=== PATIENT | male | born 1980 | race American Indian/Alaskan Native ===

== ENCOUNTER 2016-10-02 20:15 | Emergency (ER) | payer MEDICAID, OTHER ==
[2016-10-02 21:18] VITALS: BP 131/72
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
== END 2016-10-02 23:07 | disposition home or self-care (01) ==
LOC: JP.ED 20:15
DX: H11.31 Conjunctival hemorrhage, right eye (principal); S00.83XA Contusion of other part of head, initial encounter; F17.210 Nicotine dependence, cigarettes, uncomplicated; Z98.890 Other specified postprocedural states; Z88.8 Allergy status to other drugs, medicaments and biological substances; Z91.013 Allergy to seafood; Y04.0XXA Assault by unarmed brawl or fight, initial encounter
CPT/HCPCS: 70450; 70486; 99282; 99284-25

== ENCOUNTER 2018-03-24 08:38 | Emergency (ER) | payer MEDICAID ==
[2018-03-24 08:54] VITALS: BP 111/74
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
== END 2018-03-24 09:52 | disposition home or self-care (01) ==
LOC: JP.ED 08:38
DX: F19.10 Other psychoactive substance abuse, uncomplicated (principal); E11.9 Type 2 diabetes mellitus without complications; F17.210 Nicotine dependence, cigarettes, uncomplicated; Z88.6 Allergy status to analgesic agent; Z91.013 Allergy to seafood
CPT/HCPCS: 80305-QW; 99285

== ENCOUNTER 2020-04-05 14:09 | Emergency (ER) | payer MEDICAID ==
[2020-04-05 14:34] VITALS: BP 107/64; PULSE 80
[2020-04-05] MEDS ORDERED: Cyclobenzaprine 10 MG Tab PO ONE (15:09)
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
--- NOTE | 2020-04-05 17:12 | CRLCR ---
INDICATION: Jaw face pain, stepped on nail TECHNIQUE: Facial bone radiograph 4 views COMPARISON: None FINDINGS: Bone: No acute fractures or aggressive bone lesions are identified. Joint: The temporomandibular joints are unremarkable in appearance. No TMJ subluxation or dislocation seen. Sinus: The visualized paranasal sinuses are unremarkable in appearance. Soft tissue: Unremarkable. No radiopaque foreign bodies are seen. IMPRESSION: 1. Both temporomandibular joints are normal in articulation. Dictated by: Truong Beltran MD @ 04/05/2020 17:10:58 (Electronically Signed)
== END 2020-04-05 17:42 | disposition home or self-care (01) ==
LOC: JP.ED 14:09
DX: A35 Other tetanus (principal); H93.19 Tinnitus, unspecified ear; Z88.6 Allergy status to analgesic agent; Z91.013 Allergy to seafood; F17.210 Nicotine dependence, cigarettes, uncomplicated
CPT/HCPCS: 36415; 70100; 80053; 83605; 85025; 86140; 99283; A9270

== ENCOUNTER 2020-04-08 10:16 | Emergency (ER) | payer MEDICAID ==
[2020-04-08 10:25] VITALS: BP 127/77; PULSE 84
[2020-04-08] MEDS ORDERED: fentaNYL 100 MCG/2 ML SDV IVPUSH ONE (10:40)
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
[2020-04-08] MEDS ORDERED: Iopamidol 612 MG/ML 500 ML Multipack Bottle IV ONE (12:20)
[2020-04-08] MEDS ORDERED: Sodium Chloride 0.9% 10 ML Syringe FLUSH ONE (12:20)
[2020-04-08] MEDS ORDERED: Sodium Chloride 0.9% 100 ML IV SCH (12:30)
--- NOTE | 2020-04-08 13:41 | CT ---
Soft Tissue Neck w Cont, Max Facial Sinus wo Cont CLINICAL HISTORY: Right neck and jaw pain COMPARISON: None TECHNIQUE: Multiple axial images were obtained of the neck with the IV infusion of iodinated contrast. Auto dosage reduction and iterative reconstruction techniques employed. FINDINGS: There is moderate soft tissue swelling involving the right side of the nasopharynx extending down into the right para pharyngeal region causing a shift of the pharynx to the left. There is a ringlike enhancing lesion just deep to the right mandibular ramus with some central low-attenuation. This measures 4.4 x 3.7 x 3.6 cm. There is moderate soft tissue swelling extending downward along the right and into the pterygoid fossa down to the level of the vallecula with loss of fascial planes.. There is mild mass effect on the right piriform sinus. There is some downward displacement of the right submandibular gland. The vocal cords are symmetric. The subglottic airway has a normal course and contour. There is shotty lymphadenopathy throughout the neck right greater than left. IMPRESSION: Large area of masslike soft tissue swelling in the right parapharyngeal region from the nasopharynx to the piriform sinuses. This shifts the pharynx to the left. There is a central area of low-attenuation with some ringlike enhancement just deep to the mandibular ramus. This is suspect for abscess. Underlying neoplasm is not absolutely excluded. This should be reevaluated following course of treatment. Max Facial Sinus wo Cont The mandible appears intact. The TMJs appear intact. Articular surfaces are smooth. CLINICAL HISTORY: Right face and neck pain FINDINGS: The frontal sinuses are clear. The sphenoid sinus is clear. There is some mild mucosal thickening in the ethmoids bilaterally. There is a small mucous retention cyst in the base of the right maxillary sinus There is rightward deviation of the nasal septum. There is some periapical lucency around the first left mandibular molar. There is also some dental caries. There is streak artifact due to dental amalgam obscuring some detail. The right mandibular teeth have a normal appearance. There is a large soft tissue mass in the right parapharyngeal region shifting the pharynx to the left. This is seen to extend to the inner margin of the mandibular ramus. IMPRESSION: Mild sinusitis in the ethmoid and maxillary sinuses. Large soft tissue masslike focus in the right parapharyngeal region described above. See postcontrast CT neck. Left-sided mandibular dental caries involving the first molar. There is also periapical lucency which could represent dental abscess
[2020-04-08] MEDS ORDERED: Clindamycin Phosphate 900 MG in Sodium Chloride 0.9% 100 ML IV ONE (14:03)
[2020-04-08] MEDS ORDERED: Ampicillin/Sulbactam Na 3 GM in Sodium Chloride 0.9% 100 ML IV ONE (14:10)
[2020-04-08] MEDS ORDERED: Dexamethasone 4 MG/ML SDV IVPUSH ONE (14:21)
== END 2020-04-08 15:00 ==
LOC: JP.ED 10:16
DX: K12.2 Cellulitis and abscess of mouth (principal); E13.9 Other specified diabetes mellitus without complications; F17.210 Nicotine dependence, cigarettes, uncomplicated; Z91.013 Allergy to seafood; Z88.6 Allergy status to analgesic agent; Z79.899 Other long term (current) drug therapy
CPT/HCPCS: 36415; 70486; 70491; 80048; 85025; 87635; 96365; 96368; 96375; 99285; J0295; J1100; J3010; J3490; J7050; Q9967; U0002